=== PATIENT | female | born 1930 | race Caucasian/White ===

== ENCOUNTER 2017-08-30 14:34 | Emergency (ER) | payer MEDICARE, BC ==
[~2017-08-30] VITALS: Ht 149.9 cm; Wt 48.9 kg
[~2017-08-30 14:34] MED LIST: ATOR20TA PO; CYCL-1 PO; LEVO50TA PO; POTA8TAB8 PO; TRAM50TA2 PO
[2017-08-30 16:39] VITALS: BP 146/107
== END 2017-08-30 16:41 | disposition home or self-care (01) ==
LOC: ER 14:35
DX: M54.9 Dorsalgia, unspecified (principal); G89.29 Other chronic pain; E78.00 Pure hypercholesterolemia, unspecified
CPT/HCPCS: 72100; 99284

== ENCOUNTER 2017-09-26 09:00 | Outpatient (CLI) | payer MEDICARE, BC ==
[2017-09-26 08:59] VITALS: BP 144/77
== END 2017-09-26 09:55 | disposition home or self-care (01) ==
LOC: ORTHO 09:00
PROVIDERS: ATTEND Nurse Practitioner Family
DX: S72.141D Displaced intertrochanteric fracture of right femur, subsequent encounter for closed fracture with routine healing (principal); F41.9 Anxiety disorder, unspecified; J45.909 Unspecified asthma, uncomplicated; Z79.899 Other long term (current) drug therapy; Z60.2 Problems related to living alone; X58.XXXD Exposure to other specified factors, subsequent encounter
CPT/HCPCS: 73502